=== PATIENT | male | born 1980 | race Caucasian/White ===

== ENCOUNTER 2022-02-22 14:55 | Inpatient (IN) | payer OTHER ==
[2022-02-22 17:49] VITALS: BMI 27.7
[2022-02-22] MEDS ORDERED: guaiFENesin 200 MG/10 ML 10 ML UNIT-DOSE CUPS PO PRN (18:35)
[2022-02-22] MEDS ORDERED: ACETAMINOPHEN 325 MG TABLET (FP) PO PRN ×2 (18:35)
[2022-02-22] MEDS ORDERED: ONDANSETRON *ODT* 4 MG TABLET SL PRN (18:35)
[2022-02-22] MEDS ORDERED: IBUPROFEN 600 MG TABLET (FP) PO PRN (18:35)
[2022-02-22] MEDS ORDERED: BENZOCAINE/MENTHOL (CHLORASEPTIC ) LOZENGE MM PRN (18:35)
[2022-02-22] MEDS ORDERED: POLYETHYLENE GLYCOL (HEALTHYLAX) 3350 17 GM PACKET PO PRN (18:35)
[2022-02-22] MEDS ORDERED: DICYCLOMINE HCL 10 MG CAPSULE PO PRN (18:35)
[2022-02-22] MEDS ORDERED: hydrOXYzine PAMOATE 25 MG CAPSULE (FP) PO PRN (18:35)
[2022-02-22] MEDS ORDERED: MAG HYDROX/AL HYDROX/SIMETH 30 ML UNIT-DOSE CUP PO PRN (18:35)
[2022-02-22] MEDS ORDERED: METHOCARBAMOL 500 MG TABLET PO PRN (18:35)
[2022-02-22] MEDS ORDERED: P-EPHED 60MG/TRIPROLIDI 2.5MG TABLET PO PRN (18:35)
[2022-02-22] MEDS ORDERED: LOPERAMIDE HCL 2 MG CAPSULE PO PRN (18:35)
[2022-02-22] MEDS ORDERED: BISMUTH SUBSALICYLATE 524 MG/30 ML PO PRN (18:35)
[2022-02-22] MEDS ORDERED: MAGNESIUM HYDROX 2400MG/30ML ORAL SUSPENSION 30 ML CUP PO PRN (18:35)
[2022-02-22] MEDS ORDERED: IBUPROFEN 400 MG TABLET (FP) PO PRN (18:35)
[2022-02-22] MEDS ORDERED: chlordiazePOXIDE HCL 25 MG CAPSULE PO ONE (18:50)
[2022-02-22] MEDS: THIAMINE HCL 100 MG TABLET (FP) PO SCH (21:21)
[2022-02-22] MEDS: MELATONIN 5 MG TABLETS PO SCH (21:21)
[2022-02-22] MEDS: levETIRAcetam 500 MG TABLET (FP) PO SCH (22:35)
[2022-02-22] MEDS: chlordiazePOXIDE HCL 25 MG CAPSULE PO SCH (23:12)
[2022-02-23] MEDS: chlordiazePOXIDE HCL 25 MG CAPSULE PO SCH ×4 (04:05→22:17)
[2022-02-23] MEDS: chlordiazePOXIDE HCL 25 MG CAPSULE PO PRN ×2 (07:43→14:53)
[2022-02-23 10:09] LABS: ALBUMIN 3.7 g/dl (3.4-5.0); BLOOD UREA NITROGEN 13.6 mg/dL (7-18)
[2022-02-23 10:11] LABS: CREATININE 0.9 mg/dL (0.55-1.3)
[2022-02-23 10:14] LABS: BILIRUBIN,TOTAL 0.4 mg/dL (0.2-1); TOT PROT 7.4 g/dl (6.4-8.2)
[2022-02-23 10:24] LABS: HEMATOCRIT 42.8 % (35.4-49); HEMOGLOBIN 14.5 GM/dL (11.7-16.9); MCH 32.5 pg (25.7-33.7); MCHC 33.9 g/dl (32.0-35.9); MEAN PLT VOLUME 7.5 fl (7.5-11.1); PLATELET COUNT 290 10^3/uL (134-434); RBC 4.46 M/mm3 (4.00-5.60); WHITE BLOOD COUNT 6.4 K/mm3 (4.0-10.0)
[2022-02-23] MEDS: PRENATAL VITAMINS W/ FOLIC ACID TABLET (FP) PO SCH (10:30)
[2022-02-23] MEDS: levETIRAcetam 500 MG TABLET (FP) PO SCH ×2 (10:30→22:17)
[2022-02-23] MEDS: NICOTINE 10 MG CARTRIDGE (INHALER) IH PRN ×3 (10:31→22:45)
[2022-02-23] MEDS: THIAMINE HCL 100 MG TABLET (FP) PO SCH (22:16)
[2022-02-23] MEDS: MELATONIN 5 MG TABLETS PO SCH (22:16)
[2022-02-24] MEDS: chlordiazePOXIDE HCL 25 MG CAPSULE PO SCH ×4 (05:56→22:06)
[2022-02-24] MEDS: NICOTINE 10 MG CARTRIDGE (INHALER) IH PRN ×2 (06:18→13:21)
[2022-02-24] MEDS: levETIRAcetam 500 MG TABLET (FP) PO SCH ×2 (10:25→22:06)
[2022-02-24] MEDS: PRENATAL VITAMINS W/ FOLIC ACID TABLET (FP) PO SCH (10:25)
[2022-02-24] MEDS: chlordiazePOXIDE HCL 25 MG CAPSULE PO PRN (12:35)
[2022-02-24] MEDS: NICOTINE 21 MG/24 HOURS TOPICAL PATCH TD SCH (15:08)
[2022-02-24] MEDS: THIAMINE HCL 100 MG TABLET (FP) PO SCH (22:06)
[2022-02-24] MEDS: MELATONIN 5 MG TABLETS PO SCH (22:06)
[2022-02-25] MEDS ORDERED: chlordiazePOXIDE HCL 10 MG CAPSULE PO PRN
[2022-02-25] MEDS: chlordiazePOXIDE HCL 10 MG CAPSULE PO SCH ×4 (05:47→22:20)
[2022-02-25] MEDS: NICOTINE 21 MG/24 HOURS TOPICAL PATCH TD SCH (10:12)
[2022-02-25] MEDS: levETIRAcetam 500 MG TABLET (FP) PO SCH ×2 (10:12→22:19)
[2022-02-25] MEDS: PRENATAL VITAMINS W/ FOLIC ACID TABLET (FP) PO SCH (10:12)
[2022-02-25] MEDS: MELATONIN 5 MG TABLETS PO SCH (22:19)
[2022-02-25] MEDS: THIAMINE HCL 100 MG TABLET (FP) PO SCH (22:19)
[2022-02-25] MEDS: QUEtiapine FUMARATE 50 MG TABLET PO SCH (22:19)
[2022-02-26] MEDS: chlordiazePOXIDE HCL 10 MG CAPSULE PO SCH ×2 (06:33→17:33)
[2022-02-26] MEDS: levETIRAcetam 500 MG TABLET (FP) PO SCH ×2 (10:05→22:23)
[2022-02-26] MEDS: PRENATAL VITAMINS W/ FOLIC ACID TABLET (FP) PO SCH (10:05)
[2022-02-26] MEDS: NICOTINE 21 MG/24 HOURS TOPICAL PATCH TD SCH (10:07)
[2022-02-26 17:35] VITALS: RESP 18
[2022-02-26] MEDS: THIAMINE HCL 100 MG TABLET (FP) PO SCH (22:23)
[2022-02-26] MEDS: MELATONIN 5 MG TABLETS PO SCH (22:23)
[2022-02-26] MEDS: QUEtiapine FUMARATE 50 MG TABLET PO SCH (22:23)
[2022-02-27] MEDS ORDERED: chlordiazePOXIDE HCL 10 MG CAPSULE PO ONE (05:00)
[2022-02-27 06:30] VITALS: BP 111/74; PULSE 80; TEMP 98.4
== END 2022-02-27 08:32 | disposition home or self-care (01) | DRG 897 ==
LOC: YASAS 14:55 → Y3N 19:56
PROVIDERS: ADMIT Allergy & Immunology; ATTEND Psychiatry & Neurology Psychiatry
PROC: HZ2ZZZZ Detoxification Services for Substance Abuse Treatment (ICD-10-PCS; principal; 2022-02-22)
DX: F10.230 Alcohol dependence with withdrawal, uncomplicated (principal); F12.20 Cannabis dependence, uncomplicated; F17.290 Nicotine dependence, other tobacco product, uncomplicated; F31.9 Bipolar disorder, unspecified; F10.282 Alcohol dependence with alcohol-induced sleep disorder; Z87.820 Personal history of traumatic brain injury; Z56.0 Unemployment, unspecified; Z59.00 Homelessness unspecified
CPT/HCPCS: 36415; 80053; 85027; 86780; 87811; 93005; 93010; C9803-CS; U0003; U0005

== ENCOUNTER 2022-03-31 09:07 | Inpatient (IN) | payer OTHER ==
[2022-03-31 10:11] VITALS: BMI 27.7
[2022-03-31] MEDS ORDERED: ONDANSETRON *ODT* 4 MG TABLET SL PRN (10:22)
[2022-03-31] MEDS ORDERED: DICYCLOMINE HCL 10 MG CAPSULE PO PRN (10:22)
[2022-03-31] MEDS ORDERED: BISMUTH SUBSALICYLATE 524 MG/30 ML PO PRN (10:22)
[2022-03-31] MEDS ORDERED: IBUPROFEN 400 MG TABLET (FP) PO PRN (10:22)
[2022-03-31] MEDS ORDERED: POLYETHYLENE GLYCOL (HEALTHYLAX) 3350 17 GM PACKET PO PRN (10:22)
[2022-03-31] MEDS ORDERED: MAGNESIUM HYDROX 2400MG/30ML ORAL SUSPENSION 30 ML CUP PO PRN (10:22)
[2022-03-31] MEDS ORDERED: MAG HYDROX/AL HYDROX/SIMETH 30 ML UNIT-DOSE CUP PO PRN (10:22)
[2022-03-31] MEDS ORDERED: ACETAMINOPHEN 325 MG TABLET (FP) PO PRN ×2 (10:22)
[2022-03-31] MEDS ORDERED: BENZOCAINE/MENTHOL (CHLORASEPTIC ) LOZENGE MM PRN (10:22)
[2022-03-31] MEDS ORDERED: LOPERAMIDE HCL 2 MG CAPSULE PO PRN (10:22)
[2022-03-31] MEDS ORDERED: NALOXONE HCL (KLOXXADO) 8 MG SPRAY NS PRN (10:22)
[2022-03-31] MEDS ORDERED: NICOTINE 10 MG CARTRIDGE (INHALER) IH PRN (10:22)
[2022-03-31] MEDS ORDERED: chlordiazePOXIDE HCL 25 MG CAPSULE ONE (11:01)
[2022-03-31] MEDS: chlordiazePOXIDE HCL 25 MG CAPSULE PO SCH ×3 (11:04→22:26)
[2022-03-31] MEDS: METHOCARBAMOL 500 MG TABLET PO PRN (11:17)
[2022-03-31] MEDS: hydrOXYzine PAMOATE 25 MG CAPSULE (FP) PO PRN (11:17)
[2022-03-31] MEDS: IBUPROFEN 600 MG TABLET (FP) PO PRN (11:17)
[2022-03-31] MEDS ORDERED: MELATONIN 5 MG TABLETS PO SCH (22:00)
[2022-03-31] MEDS: THIAMINE HCL 100 MG TABLET (FP) PO SCH (22:26)
[2022-04-01] MEDS: chlordiazePOXIDE HCL 25 MG CAPSULE PO SCH ×4 (05:58→22:04)
[2022-04-01] MEDS: PANTOPRAZOLE 40 MG TABLET PO SCH (10:54)
[2022-04-01] MEDS: PRENATAL VITAMINS W/ FOLIC ACID TABLET (FP) PO SCH (10:56)
[2022-04-01 10:59] LABS: MCH 32.1 pg (25.7-33.7); MCHC 33.2 g/dl (32.0-35.9); MEAN CELL VOLUME 96.6 fl (80-96); MEAN PLT VOLUME 7.5 fl (7.5-11.1); PLATELET COUNT 325 10^3/uL (134-434); RBC 4.66 M/mm3 (4.00-5.60); RDW 12.8 % (11.9-15.9); WHITE BLOOD COUNT 8.1 K/mm3 (4.0-10.0)
[2022-04-01 11:42] LABS: ALBUMIN 3.3 g/dl (3.4-5.0); BLOOD UREA NITROGEN 11.3 mg/dL (7-18); CALCIUM 8.9 mg/dL (8.5-10.1)
[2022-04-01 11:46] LABS: CREATININE 0.9 mg/dL (0.55-1.3)
[2022-04-01 11:47] LABS: BILIRUBIN,TOTAL 0.7 mg/dL (0.2-1); TOT PROT 6.8 g/dl (6.4-8.2)
[2022-04-01] MEDS ORDERED: QUEtiapine FUMARATE 50 MG TABLET PO PRN (13:07)
[2022-04-01] MEDS: chlordiazePOXIDE HCL 25 MG CAPSULE PO PRN (13:23)
[2022-04-01] MEDS: THIAMINE HCL 100 MG TABLET (FP) PO SCH (22:03)
[2022-04-01] MEDS: QUEtiapine FUMARATE 300 MG TABLET PO SCH (22:03)
[2022-04-02] MEDS: chlordiazePOXIDE HCL 25 MG CAPSULE PO SCH ×4 (06:07→22:10)
[2022-04-02] MEDS: PRENATAL VITAMINS W/ FOLIC ACID TABLET (FP) PO SCH (10:30)
[2022-04-02] MEDS: PANTOPRAZOLE 40 MG TABLET PO SCH (10:30)
[2022-04-02] MEDS: NICOTINE 7 MG/24 HOURS TOPICAL PATCH TD SCH (10:32)
[2022-04-02] MEDS: chlordiazePOXIDE HCL 25 MG CAPSULE PO PRN (13:18)
[2022-04-02] MEDS: hydrOXYzine PAMOATE 25 MG CAPSULE (FP) PO PRN (22:09)
[2022-04-02] MEDS: THIAMINE HCL 100 MG TABLET (FP) PO SCH (22:10)
[2022-04-02] MEDS: QUEtiapine FUMARATE 300 MG TABLET PO SCH (22:10)
[2022-04-03] MEDS ORDERED: chlordiazePOXIDE HCL 10 MG CAPSULE PO PRN
[2022-04-03] MEDS: chlordiazePOXIDE HCL 10 MG CAPSULE PO SCH ×4 (05:58→22:01)
[2022-04-03] MEDS: PRENATAL VITAMINS W/ FOLIC ACID TABLET (FP) PO SCH (10:19)
[2022-04-03] MEDS: NICOTINE 7 MG/24 HOURS TOPICAL PATCH TD SCH (10:20)
[2022-04-03] MEDS: PANTOPRAZOLE 40 MG TABLET PO SCH (10:21)
[2022-04-03] MEDS: hydrOXYzine PAMOATE 25 MG CAPSULE (FP) PO PRN (13:58)
[2022-04-03] MEDS: THIAMINE HCL 100 MG TABLET (FP) PO SCH (22:01)
[2022-04-03] MEDS: QUEtiapine FUMARATE 300 MG TABLET PO SCH (22:02)
[2022-04-04] MEDS: chlordiazePOXIDE HCL 10 MG CAPSULE PO SCH ×2 (05:48→17:26)
[2022-04-04] MEDS: PANTOPRAZOLE 40 MG TABLET PO SCH (10:27)
[2022-04-04] MEDS: NICOTINE 21 MG/24 HOURS TOPICAL PATCH TD SCH (10:27)
[2022-04-04] MEDS: METHOCARBAMOL 500 MG TABLET PO PRN ×2 (10:27→22:09)
[2022-04-04] MEDS: PRENATAL VITAMINS W/ FOLIC ACID TABLET (FP) PO SCH (10:27)
[2022-04-04] MEDS: THIAMINE HCL 100 MG TABLET (FP) PO SCH (22:07)
[2022-04-04] MEDS: QUEtiapine FUMARATE 300 MG TABLET PO SCH (22:07)
[2022-04-04] MEDS: hydrOXYzine PAMOATE 25 MG CAPSULE (FP) PO PRN (22:08)
[2022-04-05] MEDS ORDERED: chlordiazePOXIDE HCL 10 MG CAPSULE PO ONE (05:00)
[2022-04-05] MEDS: NICOTINE 21 MG/24 HOURS TOPICAL PATCH TD SCH (10:28)
[2022-04-05] MEDS: hydrOXYzine PAMOATE 25 MG CAPSULE (FP) PO PRN (10:29)
[2022-04-05] MEDS: PANTOPRAZOLE 40 MG TABLET PO SCH (10:29)
[2022-04-05] MEDS: PRENATAL VITAMINS W/ FOLIC ACID TABLET (FP) PO SCH (10:29)
[2022-04-05] MEDS: BACLOFEN 10 MG TABLET (FP) PO SCH ×2 (15:41→21:02)
[2022-04-05] MEDS: THIAMINE HCL 100 MG TABLET (FP) PO SCH (21:01)
[2022-04-05] MEDS: QUEtiapine FUMARATE 300 MG TABLET PO SCH (21:02)
[2022-04-06] MEDS: BACLOFEN 10 MG TABLET (FP) PO SCH ×3 (06:39→21:08)
[2022-04-06] MEDS: NICOTINE 21 MG/24 HOURS TOPICAL PATCH TD SCH (09:39)
[2022-04-06] MEDS: PANTOPRAZOLE 40 MG TABLET PO SCH (09:39)
[2022-04-06] MEDS: PRENATAL VITAMINS W/ FOLIC ACID TABLET (FP) PO SCH (09:39)
[2022-04-06] MEDS ORDERED: PNEUMOC 20-VAL CONJ-DIP CRM/PF 0.5 ML SYRINGE IM ONE (12:00)
[2022-04-06] MEDS: QUEtiapine FUMARATE 300 MG TABLET PO SCH (21:08)
[2022-04-06] MEDS: THIAMINE HCL 100 MG TABLET (FP) PO SCH (21:08)
[2022-04-07] MEDS: BACLOFEN 10 MG TABLET (FP) PO SCH ×3 (06:16→21:09)
[2022-04-07] MEDS: PRENATAL VITAMINS W/ FOLIC ACID TABLET (FP) PO SCH (09:39)
[2022-04-07] MEDS: PANTOPRAZOLE 40 MG TABLET PO SCH (09:40)
[2022-04-07] MEDS: NICOTINE 21 MG/24 HOURS TOPICAL PATCH TD SCH (09:40)
[2022-04-07] MEDS: IBUPROFEN 600 MG TABLET (FP) PO PRN (14:03)
[2022-04-07] MEDS: QUEtiapine FUMARATE 300 MG TABLET PO SCH (21:09)
[2022-04-07] MEDS: THIAMINE HCL 100 MG TABLET (FP) PO SCH (21:09)
[2022-04-08] MEDS: BACLOFEN 10 MG TABLET (FP) PO SCH ×3 (07:09→21:10)
[2022-04-08] MEDS: NICOTINE 21 MG/24 HOURS TOPICAL PATCH TD SCH (09:35)
[2022-04-08] MEDS: PRENATAL VITAMINS W/ FOLIC ACID TABLET (FP) PO SCH (09:35)
[2022-04-08] MEDS: PANTOPRAZOLE 40 MG TABLET PO SCH (09:36)
[2022-04-08] MEDS: QUEtiapine FUMARATE 300 MG TABLET PO SCH (21:10)
[2022-04-08] MEDS: THIAMINE HCL 100 MG TABLET (FP) PO SCH (21:10)
[2022-04-09] MEDS: BACLOFEN 10 MG TABLET (FP) PO SCH ×3 (06:21→21:04)
[2022-04-09] MEDS: PRENATAL VITAMINS W/ FOLIC ACID TABLET (FP) PO SCH (09:30)
[2022-04-09] MEDS: NICOTINE 21 MG/24 HOURS TOPICAL PATCH TD SCH (09:31)
[2022-04-09] MEDS: PANTOPRAZOLE 40 MG TABLET PO SCH (09:31)
[2022-04-09] MEDS: LACTULOSE 20 GM/30 ML UDC (FOR ORAL USE ONLY) PO SCH ×2 (14:57→21:04)
[2022-04-09] MEDS: QUEtiapine FUMARATE 300 MG TABLET PO SCH (21:04)
[2022-04-09] MEDS: THIAMINE HCL 100 MG TABLET (FP) PO SCH (21:04)
[2022-04-10] MEDS: BACLOFEN 10 MG TABLET (FP) PO SCH ×3 (06:41→21:17)
[2022-04-10] MEDS: LACTULOSE 20 GM/30 ML UDC (FOR ORAL USE ONLY) PO SCH ×3 (06:41→21:17)
[2022-04-10] MEDS: PRENATAL VITAMINS W/ FOLIC ACID TABLET (FP) PO SCH (09:43)
[2022-04-10] MEDS: NICOTINE 21 MG/24 HOURS TOPICAL PATCH TD SCH (09:43)
[2022-04-10] MEDS: PANTOPRAZOLE 40 MG TABLET PO SCH (09:43)
[2022-04-10] MEDS: QUEtiapine FUMARATE 300 MG TABLET PO SCH (21:17)
[2022-04-10] MEDS: THIAMINE HCL 100 MG TABLET (FP) PO SCH (21:17)
[2022-04-11] MEDS: LACTULOSE 20 GM/30 ML UDC (FOR ORAL USE ONLY) PO SCH ×3 (06:30→21:10)
[2022-04-11] MEDS: BACLOFEN 10 MG TABLET (FP) PO SCH ×3 (06:30→21:10)
[2022-04-11] MEDS: NICOTINE 21 MG/24 HOURS TOPICAL PATCH TD SCH (09:41)
[2022-04-11] MEDS: PANTOPRAZOLE 40 MG TABLET PO SCH (09:41)
[2022-04-11] MEDS: PRENATAL VITAMINS W/ FOLIC ACID TABLET (FP) PO SCH (09:41)
[2022-04-11] MEDS: THIAMINE HCL 100 MG TABLET (FP) PO SCH (21:10)
[2022-04-11] MEDS: QUEtiapine FUMARATE 300 MG TABLET PO SCH (21:10)
[2022-04-11] MEDS: hydrOXYzine PAMOATE 25 MG CAPSULE (FP) PO PRN (21:11)
[2022-04-12] MEDS: BACLOFEN 10 MG TABLET (FP) PO SCH ×3 (06:27→21:04)
[2022-04-12] MEDS: LACTULOSE 20 GM/30 ML UDC (FOR ORAL USE ONLY) PO SCH ×3 (06:27→21:04)
[2022-04-12] MEDS: NICOTINE 21 MG/24 HOURS TOPICAL PATCH TD SCH (09:42)
[2022-04-12] MEDS: PRENATAL VITAMINS W/ FOLIC ACID TABLET (FP) PO SCH (09:42)
[2022-04-12] MEDS: PANTOPRAZOLE 40 MG TABLET PO SCH (09:42)
[2022-04-12] MEDS ORDERED: MAGNESIUM CITRATE 300 ML BOTTLE PO ONE (10:35)
[2022-04-12] MEDS: QUEtiapine FUMARATE 300 MG TABLET PO SCH (21:04)
[2022-04-12] MEDS: THIAMINE HCL 100 MG TABLET (FP) PO SCH (21:04)
[2022-04-13] MEDS: BACLOFEN 10 MG TABLET (FP) PO SCH ×3 (06:23→21:13)
[2022-04-13] MEDS: LACTULOSE 20 GM/30 ML UDC (FOR ORAL USE ONLY) PO SCH ×3 (06:23→21:12)
[2022-04-13] MEDS: NICOTINE 21 MG/24 HOURS TOPICAL PATCH TD SCH (09:22)
[2022-04-13] MEDS: PRENATAL VITAMINS W/ FOLIC ACID TABLET (FP) PO SCH (09:22)
[2022-04-13] MEDS: PANTOPRAZOLE 40 MG TABLET PO SCH (09:22)
[2022-04-13] MEDS: THIAMINE HCL 100 MG TABLET (FP) PO SCH (21:12)
[2022-04-13] MEDS: QUEtiapine FUMARATE 300 MG TABLET PO SCH (21:12)
[2022-04-14] MEDS: BACLOFEN 10 MG TABLET (FP) PO SCH ×3 (06:38→21:34)
[2022-04-14] MEDS: LACTULOSE 20 GM/30 ML UDC (FOR ORAL USE ONLY) PO SCH ×3 (06:38→21:34)
[2022-04-14] MEDS: PRENATAL VITAMINS W/ FOLIC ACID TABLET (FP) PO SCH (09:25)
[2022-04-14] MEDS: NICOTINE 21 MG/24 HOURS TOPICAL PATCH TD SCH (09:26)
[2022-04-14] MEDS: PANTOPRAZOLE 40 MG TABLET PO SCH (09:26)
[2022-04-14] MEDS: THIAMINE HCL 100 MG TABLET (FP) PO SCH (21:34)
[2022-04-14] MEDS: QUEtiapine FUMARATE 300 MG TABLET PO SCH (21:34)
[2022-04-15] MEDS: LACTULOSE 20 GM/30 ML UDC (FOR ORAL USE ONLY) PO SCH ×3 (06:34→21:03)
[2022-04-15] MEDS: BACLOFEN 10 MG TABLET (FP) PO SCH ×3 (06:34→21:02)
[2022-04-15] MEDS: NICOTINE 21 MG/24 HOURS TOPICAL PATCH TD SCH (09:30)
[2022-04-15] MEDS: PRENATAL VITAMINS W/ FOLIC ACID TABLET (FP) PO SCH (09:30)
[2022-04-15] MEDS: PANTOPRAZOLE 40 MG TABLET PO SCH (09:30)
[2022-04-15] MEDS: QUEtiapine FUMARATE 300 MG TABLET PO SCH (21:03)
[2022-04-15] MEDS: THIAMINE HCL 100 MG TABLET (FP) PO SCH (21:03)
[2022-04-16] MEDS: BACLOFEN 10 MG TABLET (FP) PO SCH ×3 (06:43→21:14)
[2022-04-16] MEDS: LACTULOSE 20 GM/30 ML UDC (FOR ORAL USE ONLY) PO SCH ×3 (06:43→21:14)
[2022-04-16] MEDS: NICOTINE 21 MG/24 HOURS TOPICAL PATCH TD SCH (09:34)
[2022-04-16] MEDS: PANTOPRAZOLE 40 MG TABLET PO SCH (09:34)
[2022-04-16] MEDS: PRENATAL VITAMINS W/ FOLIC ACID TABLET (FP) PO SCH (09:34)
[2022-04-16] MEDS: CYANOCOBALAMIN (VITAMIN B-12) 1000 MCG/1 ML VIAL IM SCH (11:05)
[2022-04-16] MEDS: QUEtiapine FUMARATE 300 MG TABLET PO SCH (21:14)
[2022-04-16] MEDS: THIAMINE HCL 100 MG TABLET (FP) PO SCH (21:14)
[2022-04-17] MEDS: BACLOFEN 10 MG TABLET (FP) PO SCH ×3 (06:39→21:10)
[2022-04-17] MEDS: LACTULOSE 20 GM/30 ML UDC (FOR ORAL USE ONLY) PO SCH ×3 (06:39→21:10)
[2022-04-17] MEDS: PRENATAL VITAMINS W/ FOLIC ACID TABLET (FP) PO SCH (10:30)
[2022-04-17] MEDS: PANTOPRAZOLE 40 MG TABLET PO SCH (10:30)
[2022-04-17] MEDS: NICOTINE 21 MG/24 HOURS TOPICAL PATCH TD SCH (10:31)
[2022-04-17] MEDS: THIAMINE HCL 100 MG TABLET (FP) PO SCH (21:10)
[2022-04-17] MEDS: QUEtiapine FUMARATE 300 MG TABLET PO SCH (21:10)
[2022-04-18] MEDS: BACLOFEN 10 MG TABLET (FP) PO SCH ×3 (06:26→21:09)
[2022-04-18] MEDS: LACTULOSE 20 GM/30 ML UDC (FOR ORAL USE ONLY) PO SCH ×4 (06:26→21:09)
[2022-04-18] MEDS: NICOTINE 21 MG/24 HOURS TOPICAL PATCH TD SCH (09:34)
[2022-04-18] MEDS: PRENATAL VITAMINS W/ FOLIC ACID TABLET (FP) PO SCH (09:34)
[2022-04-18] MEDS: PANTOPRAZOLE 40 MG TABLET PO SCH (09:35)
[2022-04-18] MEDS: THIAMINE HCL 100 MG TABLET (FP) PO SCH (21:09)
[2022-04-18] MEDS: QUEtiapine FUMARATE 300 MG TABLET PO SCH (21:09)
[2022-04-19] MEDS: BACLOFEN 10 MG TABLET (FP) PO SCH ×3 (06:51→21:11)
[2022-04-19] MEDS: PRENATAL VITAMINS W/ FOLIC ACID TABLET (FP) PO SCH (09:43)
[2022-04-19] MEDS: PANTOPRAZOLE 40 MG TABLET PO SCH (09:44)
[2022-04-19] MEDS: NICOTINE 21 MG/24 HOURS TOPICAL PATCH TD SCH (09:44)
[2022-04-19] MEDS: LACTULOSE 20 GM/30 ML UDC (FOR ORAL USE ONLY) PO SCH ×4 (09:44→21:11)
[2022-04-19] MEDS: THIAMINE HCL 100 MG TABLET (FP) PO SCH (21:11)
[2022-04-19] MEDS: QUEtiapine FUMARATE 300 MG TABLET PO SCH (21:11)
[2022-04-20] MEDS: BACLOFEN 10 MG TABLET (FP) PO SCH ×3 (06:44→21:03)
[2022-04-20] MEDS: PRENATAL VITAMINS W/ FOLIC ACID TABLET (FP) PO SCH (09:10)
[2022-04-20] MEDS: NICOTINE 21 MG/24 HOURS TOPICAL PATCH TD SCH (09:10)
[2022-04-20] MEDS: PANTOPRAZOLE 40 MG TABLET PO SCH (09:10)
[2022-04-20] MEDS: LACTULOSE 20 GM/30 ML UDC (FOR ORAL USE ONLY) PO SCH ×4 (09:10→21:03)
[2022-04-20] MEDS: QUEtiapine FUMARATE 300 MG TABLET PO SCH (21:03)
[2022-04-20] MEDS: THIAMINE HCL 100 MG TABLET (FP) PO SCH (21:03)
[2022-04-21] MEDS: BACLOFEN 10 MG TABLET (FP) PO SCH ×3 (06:35→21:08)
[2022-04-21 06:50] VITALS: RESP 18
[2022-04-21] MEDS: NICOTINE 21 MG/24 HOURS TOPICAL PATCH TD SCH (09:05)
[2022-04-21] MEDS: PANTOPRAZOLE 40 MG TABLET PO SCH (09:06)
[2022-04-21] MEDS: LACTULOSE 20 GM/30 ML UDC (FOR ORAL USE ONLY) PO SCH ×4 (09:06→21:08)
[2022-04-21] MEDS: PRENATAL VITAMINS W/ FOLIC ACID TABLET (FP) PO SCH (09:07)
[2022-04-21] MEDS: QUEtiapine FUMARATE 300 MG TABLET PO SCH (21:08)
[2022-04-21] MEDS: THIAMINE HCL 100 MG TABLET (FP) PO SCH (21:08)
[2022-04-22] MEDS: BACLOFEN 10 MG TABLET (FP) PO SCH ×3 (06:43→21:27)
[2022-04-22] MEDS: NICOTINE 21 MG/24 HOURS TOPICAL PATCH TD SCH (09:04)
[2022-04-22] MEDS: LACTULOSE 20 GM/30 ML UDC (FOR ORAL USE ONLY) PO SCH ×4 (09:04→21:27)
[2022-04-22] MEDS: PANTOPRAZOLE 40 MG TABLET PO SCH (09:05)
[2022-04-22] MEDS: PRENATAL VITAMINS W/ FOLIC ACID TABLET (FP) PO SCH (09:05)
[2022-04-22] MEDS: QUEtiapine FUMARATE 300 MG TABLET PO SCH (21:27)
[2022-04-22] MEDS: hydrOXYzine PAMOATE 25 MG CAPSULE (FP) PO PRN (21:27)
[2022-04-22] MEDS: THIAMINE HCL 100 MG TABLET (FP) PO SCH (21:27)
[2022-04-23] MEDS: BACLOFEN 10 MG TABLET (FP) PO SCH ×3 (06:02→21:31)
[2022-04-23] MEDS: LACTULOSE 20 GM/30 ML UDC (FOR ORAL USE ONLY) PO SCH ×4 (09:55→21:31)
[2022-04-23] MEDS: NICOTINE 21 MG/24 HOURS TOPICAL PATCH TD SCH (09:55)
[2022-04-23] MEDS: PRENATAL VITAMINS W/ FOLIC ACID TABLET (FP) PO SCH (09:55)
[2022-04-23] MEDS: PANTOPRAZOLE 40 MG TABLET PO SCH (09:55)
[2022-04-23] MEDS: CYANOCOBALAMIN (VITAMIN B-12) 1000 MCG/1 ML VIAL IM SCH (10:05)
[2022-04-23] MEDS ORDERED: PALIPERIDONE PALMITATE 156 MG/ML IM ONE (14:00)
[2022-04-23] MEDS: THIAMINE HCL 100 MG TABLET (FP) PO SCH (21:31)
[2022-04-23] MEDS: QUEtiapine FUMARATE 300 MG TABLET PO SCH (21:31)
[2022-04-24] MEDS: BACLOFEN 10 MG TABLET (FP) PO SCH (06:37)
[2022-04-24 07:09] VITALS: BP 101/73; PULSE 75; TEMP 97.1
== END 2022-04-24 08:53 | disposition home or self-care (01) | DRG 895 ==
LOC: YASAS 09:07 → Y6N 10:32 → Y5N 04-05 14:03
PROVIDERS: ADMIT Allergy & Immunology; ATTEND Psychiatry & Neurology Pain Medicine
PROC: HZ2ZZZZ Detoxification Services for Substance Abuse Treatment (ICD-10-PCS; 2022-03-31)
PROC: HZ42ZZZ Group Counseling for Substance Abuse Treatment, Cognitive-Behavioral (ICD-10-PCS; principal; 2022-04-05)
DX: F10.20 Alcohol dependence, uncomplicated (principal); F15.20 Other stimulant dependence, uncomplicated; E72.20 Disorder of urea cycle metabolism, unspecified; F12.20 Cannabis dependence, uncomplicated; F17.210 Nicotine dependence, cigarettes, uncomplicated; F10.282 Alcohol dependence with alcohol-induced sleep disorder; F10.280 Alcohol dependence with alcohol-induced anxiety disorder; F31.9 Bipolar disorder, unspecified; F25.9 Schizoaffective disorder, unspecified; F41.9 Anxiety disorder, unspecified; K21.9 Gastro-esophageal reflux disease without esophagitis; Z20.822 Contact with and (suspected) exposure to COVID-19; Z62.810 Personal history of physical and sexual abuse in childhood; Z87.820 Personal history of traumatic brain injury; Z91.410 Personal history of adult physical and sexual abuse; Z56.0 Unemployment, unspecified; Z59.01 Sheltered homelessness
CPT/HCPCS: 36415; 80053; 82140; 85027; 86780; 90677; C9803-CS; J0475; J2426; U0003; U0005

== ENCOUNTER 2023-04-13 14:35 | Inpatient (IN) | payer OTHER ==
[2023-04-13 15:55] VITALS: BMI 24.6
[2023-04-13] MEDS ORDERED: P-EPHED 60MG/TRIPROLIDI 2.5MG TABLET PO PRN (16:09)
[2023-04-13] MEDS ORDERED: BENZOCAINE/MENTHOL (CHLORASEPTIC ) LOZENGE MM PRN (16:09)
[2023-04-13] MEDS ORDERED: IBUPROFEN 400 MG TABLET (FP) PO PRN (16:09)
[2023-04-13] MEDS ORDERED: LOPERAMIDE HCL 2 MG CAPSULE PO PRN (16:09)
[2023-04-13] MEDS ORDERED: BENZONATATE 200 MG CAPSULE PO PRN (16:09)
[2023-04-13] MEDS ORDERED: MAGNESIUM HYDROX 2400MG/30ML ORAL SUSPENSION 30 ML CUP PO PRN (16:09)
[2023-04-13] MEDS ORDERED: ACETAMINOPHEN 325 MG TABLET (FP) PO PRN (16:09)
[2023-04-13] MEDS ORDERED: BISMUTH SUBSALICYLATE 524 MG/30 ML PO PRN (16:09)
[2023-04-13] MEDS ORDERED: guaiFENesin 600 MG TABLET.ER (FP) PO PRN (16:09)
[2023-04-13] MEDS ORDERED: DICYCLOMINE HCL 10 MG CAPSULE PO PRN (16:09)
[2023-04-13] MEDS ORDERED: POLYETHYLENE GLYCOL (HEALTHYLAX) 3350 17 GM PACKET PO PRN (16:09)
[2023-04-13] MEDS ORDERED: MAG HYDROX/AL HYDROX/SIMETH 30 ML UNIT-DOSE CUP PO PRN (16:09)
[2023-04-13] MEDS: PANTOPRAZOLE 40 MG TABLET PO SCH ×2 (17:07→18:15)
[2023-04-13] MEDS: chlordiazePOXIDE HCL 25 MG CAPSULE PO SCH ×2 (18:08→18:14)
[2023-04-13] MEDS: hydrOXYzine PAMOATE 25 MG CAPSULE (FP) PO PRN (18:12)
[2023-04-13] MEDS: chlordiazePOXIDE HCL 25 MG CAPSULE PO PRN (20:18)
[2023-04-13] MEDS: THIAMINE HCL 100 MG TABLET (FP) PO SCH (22:31)
[2023-04-13] MEDS: MELATONIN 5 MG TABLETS PO SCH (22:31)
[2023-04-13] MEDS: levETIRAcetam 500 MG TABLET (FP) PO SCH (22:32)
[2023-04-14] MEDS: PRENATAL VITAMINS W/ FOLIC ACID TABLET (FP) PO SCH (10:28)
[2023-04-14] MEDS: NICOTINE 14 MG/24 HOURS TOPICAL PATCH TD SCH (10:29)
[2023-04-14] MEDS: METHOCARBAMOL 500 MG TABLET PO PRN (10:29)
[2023-04-14] MEDS: NICOTINE POLACRILEX 2 MG GUM BUC PRN (10:30)
[2023-04-14 10:51] LABS: HEMATOCRIT 40.9 % (35.4-49); HEMOGLOBIN 13.6 GM/dL (11.7-16.9); MCH 32.2 pg (25.7-33.7); MCHC 33.3 g/dl (32.0-35.9); MEAN CELL VOLUME 96.6 fl (80-96); MEAN PLT VOLUME 6.9 fl (7.5-11.1); PLATELET COUNT 290 10^3/uL (134-434); RBC 4.24 M/mm3 (4.00-5.60); RDW 13.5 % (11.9-15.9); WHITE BLOOD COUNT 8.2 K/mm3 (4.0-10.0)
[2023-04-14 10:57] LABS: CHLORIDE 106 mmol/L (98-107); POTASSIUM 4.3 mmol/L (3.5-5.1); SODIUM 139 mmol/L (136-145)
[2023-04-14 11:09] LABS: ALBUMIN 3.2 g/dl (3.4-5.0); ANION GAP 5 mmol/L (4-13); BLOOD UREA NITROGEN 10.9 mg/dL (7-18); CALCIUM 9.4 mg/dL (8.5-10.1); CO2 29 mmol/L (21-32); GLUCOSE,RANDOM 95 mg/dL (74-106)
[2023-04-14 11:12] LABS: CREATININE 0.7 mg/dL (0.55-1.3); SGOT/AST 13 U/L (15-37); SGPT/ALT 16 U/L (13-61)
[2023-04-14] MEDS: FLU VACCINE (FLULAVAL) PF 60 MCG/0.5 ML SYRINGE 2023-2024 IM ONE (11:13)
[2023-04-14 11:14] LABS: BILIRUBIN,TOTAL 0.5 mg/dL (0.2-1); TOT PROT 6.6 g/dl (6.4-8.2)
[2023-04-14 11:15] LABS: ALK PHOS 60 U/L (45-117)
[2023-04-14] MEDS: IBUPROFEN 600 MG TABLET (FP) PO PRN (11:47)
[2023-04-14] MEDS ORDERED: PNEUMOC 20-VAL CONJ-DIP CRM/PF 0.5 ML SYRINGE IM ONE (13:00)
[2023-04-14] MEDS ORDERED: ESCITALOPRAM OXALATE 10 MG TABLET ONE (13:18)
[2023-04-14] MEDS: GABAPENTIN 300 MG CAPSULE PO SCH (13:20)
[2023-04-14] MEDS: risperiDONE 1 MG TABLET PO SCH (13:20)
[2023-04-14] MEDS: BENZTROPINE MESYLATE 1 MG TABLET PO SCH (13:20)
[2023-04-14] MEDS: ESCITALOPRAM OXALATE 20 MG TABLET PO SCH (13:21)
[2023-04-14] MEDS: ONDANSETRON *ODT* 4 MG TABLET SL PRN (17:24)
[2023-04-14] MEDS ORDERED: QUEtiapine FUMARATE 200 MG TABLET PO SCH (22:00)
[2023-04-14] MEDS: QUEtiapine FUMARATE 200 MG TABLET PO SCH (22:17)
[2023-04-15] MEDS: chlordiazePOXIDE HCL 25 MG CAPSULE PO SCH (05:30)
[2023-04-15] MEDS ORDERED: ESCITALOPRAM OXALATE 10 MG TABLET ONE (09:19)
[2023-04-15] MEDS ORDERED: chlordiazePOXIDE HCL 25 MG CAPSULE PO ONE (14:00)
[2023-04-15] MEDS: NICOTINE 7 MG/24 HOURS TOPICAL PATCH TD ONE (14:10)
[2023-04-16] MEDS ORDERED: chlordiazePOXIDE HCL 10 MG CAPSULE PO PRN
[2023-04-16] MEDS: chlordiazePOXIDE HCL 10 MG CAPSULE PO SCH (05:45)
[2023-04-16] MEDS ORDERED: ESCITALOPRAM OXALATE 10 MG TABLET ONE (10:43)
[2023-04-16] MEDS: NICOTINE 21 MG/24 HOURS TOPICAL PATCH TD SCH (10:44)
[2023-04-17] MEDS: chlordiazePOXIDE HCL 10 MG CAPSULE PO SCH (06:00)
[2023-04-17] MEDS ORDERED: ESCITALOPRAM OXALATE 10 MG TABLET ONE (09:41)
[2023-04-18] MEDS: chlordiazePOXIDE HCL 10 MG CAPSULE PO ONE (05:30)
[2023-04-18] MEDS ORDERED: ESCITALOPRAM OXALATE 10 MG TABLET ONE (09:48)
[2023-04-18 10:06] VITALS: BP 100/59; PULSE 57; RESP 19; TEMP 97.3
== END 2023-04-18 10:40 | disposition home or self-care (01) | DRG 897 ==
LOC: YASAS 14:35 → Y6N 16:46
PROVIDERS: ADMIT Allergy & Immunology; ATTEND Allergy & Immunology
PROC: HZ2ZZZZ Detoxification Services for Substance Abuse Treatment (ICD-10-PCS; principal; 2023-04-13)
DX: F10.230 Alcohol dependence with withdrawal, uncomplicated (principal); F15.10 Other stimulant abuse, uncomplicated; F12.20 Cannabis dependence, uncomplicated; F17.210 Nicotine dependence, cigarettes, uncomplicated; F10.280 Alcohol dependence with alcohol-induced anxiety disorder; F10.282 Alcohol dependence with alcohol-induced sleep disorder; F10.24 Alcohol dependence with alcohol-induced mood disorder; F31.9 Bipolar disorder, unspecified; K21.9 Gastro-esophageal reflux disease without esophagitis; Z87.820 Personal history of traumatic brain injury; Z86.69 Personal history of other diseases of the nervous system and sense organs; Z62.810 Personal history of physical and sexual abuse in childhood; Z91.410 Personal history of adult physical and sexual abuse; Z63.8 Other specified problems related to primary support group
CPT/HCPCS: 36415; 80053; 80307; 85027; 86780; 87635; 90686; G0008; Q0162

== ENCOUNTER 2023-05-20 19:43 | Inpatient (IN) | payer OTHER ==
[2023-05-20 20:34] VITALS: BMI 27.7
[2023-05-20] MEDS ORDERED: LOPERAMIDE HCL 2 MG CAPSULE PO PRN (20:50)
[2023-05-20] MEDS ORDERED: ACETAMINOPHEN 325 MG TABLET (FP) PO PRN (20:50)
[2023-05-20] MEDS ORDERED: BENZONATATE 200 MG CAPSULE PO PRN (20:50)
[2023-05-20] MEDS ORDERED: POLYETHYLENE GLYCOL (HEALTHYLAX) 3350 17 GM PACKET PO PRN (20:50)
[2023-05-20] MEDS ORDERED: NALOXONE HCL 0.4 MG/ML VIAL IM PRN (20:50)
[2023-05-20] MEDS ORDERED: MAG HYDROX/AL HYDROX/SIMETH 30 ML UNIT-DOSE CUP PO PRN (20:50)
[2023-05-20] MEDS ORDERED: BENZOCAINE/MENTHOL (CHLORASEPTIC ) LOZENGE MM PRN (20:50)
[2023-05-20] MEDS ORDERED: NALOXONE HCL (KLOXXADO) 8 MG SPRAY NS PRN (20:50)
[2023-05-20] MEDS ORDERED: ONDANSETRON *ODT* 4 MG TABLET SL PRN (20:50)
[2023-05-20] MEDS ORDERED: guaiFENesin 600 MG TABLET.ER (FP) PO PRN (20:50)
[2023-05-20] MEDS ORDERED: MAGNESIUM HYDROX 2400MG/30ML ORAL SUSPENSION 30 ML CUP PO PRN (20:50)
[2023-05-20] MEDS ORDERED: DICYCLOMINE HCL 10 MG CAPSULE PO PRN (20:50)
[2023-05-20] MEDS ORDERED: IBUPROFEN 400 MG TABLET (FP) PO PRN (20:50)
[2023-05-20] MEDS ORDERED: chlordiazePOXIDE HCL 25 MG CAPSULE ONE (21:25)
[2023-05-20] MEDS: chlordiazePOXIDE HCL 25 MG CAPSULE PO ONE (21:27)
[2023-05-20] MEDS: chlordiazePOXIDE HCL 25 MG CAPSULE PO SCH (22:51)
[2023-05-20] MEDS: levETIRAcetam 500 MG TABLET (FP) PO SCH (22:51)
[2023-05-20] MEDS: MELATONIN 5 MG TABLETS PO SCH (22:52)
[2023-05-20] MEDS: THIAMINE HCL 100 MG TABLET (FP) PO SCH (22:53)
[2023-05-21] MEDS: METHOCARBAMOL 500 MG TABLET PO PRN (05:25)
[2023-05-21] MEDS: NICOTINE POLACRILEX 2 MG GUM BUC PRN (05:53)
[2023-05-21] MEDS: chlordiazePOXIDE HCL 25 MG CAPSULE PO PRN (07:09)
[2023-05-21] MEDS: PRENATAL VITAMINS W/ FOLIC ACID TABLET (FP) PO SCH (10:01)
[2023-05-21] MEDS: NICOTINE 14 MG/24 HOURS TOPICAL PATCH TD SCH (10:02)
[2023-05-21 10:43] LABS: HEMATOCRIT 39.9 % (35.4-49); HEMOGLOBIN 13.8 GM/dL (11.7-16.9); MCH 33.3 pg (25.7-33.7); MCHC 34.5 g/dl (32.0-35.9); MEAN CELL VOLUME 96.5 fl (80-96); MEAN PLT VOLUME 6.7 fl (7.5-11.1); PLATELET COUNT 312 10^3/uL (134-434); RBC 4.14 M/mm3 (4.00-5.60); RDW 14.4 % (11.9-15.9); WHITE BLOOD COUNT 9.3 K/mm3 (4.0-10.0)
[2023-05-21 11:16] LABS: POTASSIUM 3.7 mmol/L (3.5-5.1)
[2023-05-21 11:20] LABS: ALBUMIN 3.2 g/dl (3.4-5.0); BLOOD UREA NITROGEN 11.8 mg/dL (7-18)
[2023-05-21 11:23] LABS: CREATININE 0.7 mg/dL (0.55-1.3)
[2023-05-21 11:25] LABS: BILIRUBIN,TOTAL 0.2 mg/dL (0.2-1); TOT PROT 7.1 g/dl (6.4-8.2)
[2023-05-21] MEDS ORDERED: PNEUMOC 20-VAL CONJ-DIP CRM/PF 0.5 ML SYRINGE IM ONE (12:00)
[2023-05-21] MEDS: PANTOPRAZOLE 40 MG TABLET PO SCH (13:35)
[2023-05-21] MEDS: QUEtiapine FUMARATE 100 MG TABLET (FP) PO SCH (22:14)
[2023-05-22] MEDS: chlordiazePOXIDE HCL 25 MG CAPSULE PO SCH (05:32)
[2023-05-22] MEDS: BISMUTH SUBSALICYLATE 524 MG/30 ML PO PRN (17:19)
[2023-05-22] MEDS: hydrOXYzine PAMOATE 25 MG CAPSULE (FP) PO PRN (20:14)
[2023-05-23] MEDS ORDERED: chlordiazePOXIDE HCL 10 MG CAPSULE PO PRN
[2023-05-23] MEDS: chlordiazePOXIDE HCL 10 MG CAPSULE PO SCH (05:27)
[2023-05-23] MEDS: IBUPROFEN 600 MG TABLET (FP) PO PRN (17:10)
[2023-05-24] MEDS: chlordiazePOXIDE HCL 10 MG CAPSULE PO SCH (05:52)
[2023-05-25] MEDS: chlordiazePOXIDE HCL 10 MG CAPSULE PO ONE (05:54)
[2023-05-25 21:00] VITALS: PULSE 80
[2023-05-26 09:20] VITALS: BP 119/84; RESP 20; TEMP 97.5
== END 2023-05-26 11:25 | disposition other institution (70) | DRG 897 ==
LOC: YASAS 19:43 → Y6N 21:43
PROVIDERS: ADMIT Allergy & Immunology; ATTEND Surgery
PROC: HZ2ZZZZ Detoxification Services for Substance Abuse Treatment (ICD-10-PCS; principal; 2023-05-20)
DX: F10.230 Alcohol dependence with withdrawal, uncomplicated (principal); F17.210 Nicotine dependence, cigarettes, uncomplicated; F31.9 Bipolar disorder, unspecified; K21.9 Gastro-esophageal reflux disease without esophagitis; Z62.810 Personal history of physical and sexual abuse in childhood; Z91.410 Personal history of adult physical and sexual abuse; Z63.8 Other specified problems related to primary support group
CPT/HCPCS: 36415; 80053; 85027; 86780; 87635; 93005; 93010

== ENCOUNTER 2023-06-25 15:48 | Inpatient (IN) | payer OTHER ==
[2023-06-25 17:27] VITALS: BMI 25.3
[2023-06-25] MEDS ORDERED: chlordiazePOXIDE HCL 25 MG CAPSULE PO PRN (19:39)
[2023-06-25] MEDS ORDERED: MAGNESIUM HYDROX 2400MG/30ML ORAL SUSPENSION 30 ML CUP PO PRN (20:00)
[2023-06-25] MEDS ORDERED: BENZOCAINE/MENTHOL (CHLORASEPTIC ) LOZENGE MM PRN (20:00)
[2023-06-25] MEDS ORDERED: DICYCLOMINE HCL 10 MG CAPSULE PO PRN (20:00)
[2023-06-25] MEDS ORDERED: BENZONATATE 200 MG CAPSULE PO PRN (20:00)
[2023-06-25] MEDS ORDERED: IBUPROFEN 600 MG TABLET (FP) PO PRN (20:00)
[2023-06-25] MEDS ORDERED: MAG HYDROX/AL HYDROX/SIMETH 30 ML UNIT-DOSE CUP PO PRN (20:00)
[2023-06-25] MEDS ORDERED: BISMUTH SUBSALICYLATE 524 MG/30 ML PO PRN (20:00)
[2023-06-25] MEDS ORDERED: NALOXONE HCL 0.4 MG/ML VIAL IM PRN (20:00)
[2023-06-25] MEDS ORDERED: guaiFENesin 600 MG TABLET.ER (FP) PO PRN (20:00)
[2023-06-25] MEDS ORDERED: ACETAMINOPHEN 325 MG TABLET (FP) PO PRN (20:00)
[2023-06-25] MEDS ORDERED: IBUPROFEN 400 MG TABLET (FP) PO PRN (20:00)
[2023-06-25] MEDS ORDERED: NALOXONE HCL (KLOXXADO) 8 MG SPRAY NS PRN (20:00)
[2023-06-25] MEDS ORDERED: POLYETHYLENE GLYCOL (HEALTHYLAX) 3350 17 GM PACKET PO PRN (20:00)
[2023-06-25] MEDS ORDERED: LOPERAMIDE HCL 2 MG CAPSULE PO PRN (20:00)
[2023-06-25] MEDS ORDERED: ONDANSETRON *ODT* 4 MG TABLET SL PRN (20:00)
[2023-06-25] MEDS ORDERED: chlordiazePOXIDE HCL 25 MG CAPSULE ONE (20:17)
[2023-06-25] MEDS ORDERED: NICOTINE POLACRILEX 2 MG GUM BUC PRN (20:19)
[2023-06-25] MEDS: chlordiazePOXIDE HCL 25 MG CAPSULE PO ONE (20:21)
[2023-06-25] MEDS: levETIRAcetam 500 MG TABLET (FP) PO SCH (22:20)
[2023-06-25] MEDS: chlordiazePOXIDE HCL 25 MG CAPSULE PO SCH (22:21)
[2023-06-25] MEDS: THIAMINE HCL 100 MG TABLET (FP) PO SCH (22:21)
[2023-06-25] MEDS: propRANOLol HCL 10 MG TABLET PO ONE (22:21)
[2023-06-25] MEDS: MELATONIN 5 MG TABLETS PO SCH (22:22)
[2023-06-26] MEDS: PRENATAL VITAMINS W/ FOLIC ACID TABLET (FP) PO SCH (10:20)
[2023-06-26] MEDS: NICOTINE 21 MG/24 HOURS TOPICAL PATCH TD SCH (10:20)
[2023-06-26] MEDS: PANTOPRAZOLE 40 MG TABLET PO SCH (10:22)
[2023-06-26 11:59] LABS: HEMATOCRIT 46.2 % (35.4-49); MCH 33.5 pg (25.7-33.7); MCHC 34.5 g/dl (32.0-35.9); MEAN CELL VOLUME 96.9 fl (80-96); MEAN PLT VOLUME 6.9 fl (7.5-11.1); PLATELET COUNT 186 10^3/uL (134-434); RBC 4.77 M/mm3 (4.00-5.60); WHITE BLOOD COUNT 8.1 K/mm3 (4.0-10.0)
[2023-06-26] MEDS ORDERED: PNEUMOC 20-VAL CONJ-DIP CRM/PF 0.5 ML SYRINGE IM ONE (12:00)
[2023-06-26 12:05] LABS: POTASSIUM 3.3 mmol/L (3.5-5.1)
[2023-06-26 12:11] LABS: CALCIUM 9.1 mg/dL (8.5-10.1)
[2023-06-26 12:12] LABS: ALBUMIN 3.7 g/dl (3.4-5.0); BLOOD UREA NITROGEN 9.5 mg/dL (7-18)
[2023-06-26 12:15] LABS: CREATININE 0.6 mg/dL (0.55-1.3)
[2023-06-26 12:16] LABS: BILIRUBIN,TOTAL 0.7 mg/dL (0.2-1); TOT PROT 7.7 g/dl (6.4-8.2)
[2023-06-26] MEDS: METHOCARBAMOL 500 MG TABLET PO PRN (13:31)
[2023-06-26] MEDS: hydrOXYzine PAMOATE 25 MG CAPSULE (FP) PO PRN (13:31)
[2023-06-26] MEDS: POTASSIUM CHLORIDE ORAL LIQUID 20 MEQ/15 ML PO ONE ×3 (16:03→18:10)
[2023-06-26] MEDS: QUEtiapine FUMARATE 100 MG TABLET (FP) PO SCH (22:16)
[2023-06-26] MEDS: POTASSIUM CHLORIDE ORAL LIQUID 20 MEQ/15 ML PO SCH (22:18)
[2023-06-27] MEDS: chlordiazePOXIDE HCL 25 MG CAPSULE PO SCH (05:26)
[2023-06-27 09:21] VITALS: BP 120/84; PULSE 73; RESP 18; TEMP 97.1
[2023-06-27 12:08] LABS: POTASSIUM 3.3 mmol/L (3.5-5.1)
[2023-06-27 12:14] LABS: CALCIUM 8.9 mg/dL (8.5-10.1)
[2023-06-27 12:15] LABS: ALBUMIN 3.5 g/dl (3.4-5.0); BLOOD UREA NITROGEN 10.6 mg/dL (7-18)
[2023-06-27 12:19] LABS: CREATININE 0.7 mg/dL (0.55-1.3)
[2023-06-27 12:20] LABS: TOT PROT 7.1 g/dl (6.4-8.2)
[2023-06-28] MEDS ORDERED: chlordiazePOXIDE HCL 10 MG CAPSULE PO PRN
[2023-06-28] MEDS ORDERED: chlordiazePOXIDE HCL 10 MG CAPSULE PO SCH (05:00)
[2023-06-29] MEDS ORDERED: chlordiazePOXIDE HCL 10 MG CAPSULE PO SCH (05:00)
[2023-06-30] MEDS ORDERED: chlordiazePOXIDE HCL 10 MG CAPSULE PO ONE (05:00)
== END 2023-06-27 12:50 | disposition left against medical advice (07) | DRG 894 ==
LOC: YASAS 15:48 → Y6N 20:30
PROVIDERS: ADMIT Allergy & Immunology; ATTEND Surgery
PROC: HZ2ZZZZ Detoxification Services for Substance Abuse Treatment (ICD-10-PCS; principal; 2023-06-25)
DX: F10.230 Alcohol dependence with withdrawal, uncomplicated (principal); F19.282 Other psychoactive substance dependence with psychoactive substance-induced sleep disorder; F19.280 Other psychoactive substance dependence with psychoactive substance-induced anxiety disorder; F12.20 Cannabis dependence, uncomplicated; F17.210 Nicotine dependence, cigarettes, uncomplicated; F31.9 Bipolar disorder, unspecified; F19.24 Other psychoactive substance dependence with psychoactive substance-induced mood disorder; E87.6 Hypokalemia; Z62.810 Personal history of physical and sexual abuse in childhood; Z63.8 Other specified problems related to primary support group; Z91.410 Personal history of adult physical and sexual abuse; Z87.820 Personal history of traumatic brain injury
CPT/HCPCS: 36415; 80053; 80305; 82947; 85027; 86780

== ENCOUNTER 2023-08-14 10:22 | Inpatient (IN) | payer OTHER ==
[2023-08-14 10:40] VITALS: BMI 26.1
[2023-08-14] MEDS ORDERED: BENZONATATE 200 MG CAPSULE PO PRN (10:51)
[2023-08-14] MEDS ORDERED: DICYCLOMINE HCL 10 MG CAPSULE PO PRN (10:51)
[2023-08-14] MEDS ORDERED: IBUPROFEN 400 MG TABLET (FP) PO PRN (10:51)
[2023-08-14] MEDS ORDERED: POLYETHYLENE GLYCOL (HEALTHYLAX) 3350 17 GM PACKET PO PRN (10:51)
[2023-08-14] MEDS ORDERED: BISMUTH SUBSALICYLATE 524 MG/30 ML PO PRN (10:51)
[2023-08-14] MEDS ORDERED: NALOXONE HCL 0.4 MG/ML VIAL IM PRN (10:51)
[2023-08-14] MEDS ORDERED: LOPERAMIDE HCL 2 MG CAPSULE PO PRN (10:51)
[2023-08-14] MEDS ORDERED: NALOXONE HCL (KLOXXADO) 8 MG SPRAY NS PRN (10:51)
[2023-08-14] MEDS ORDERED: BENZOCAINE/MENTHOL (CHLORASEPTIC ) LOZENGE MM PRN (10:51)
[2023-08-14] MEDS ORDERED: MAGNESIUM HYDROX 2400MG/30ML ORAL SUSPENSION 30 ML CUP PO PRN (10:51)
[2023-08-14] MEDS ORDERED: guaiFENesin 600 MG TABLET.ER (FP) PO PRN (10:51)
[2023-08-14] MEDS ORDERED: MAG HYDROX/AL HYDROX/SIMETH 30 ML UNIT-DOSE CUP PO PRN (10:51)
[2023-08-14] MEDS ORDERED: ACETAMINOPHEN 325 MG TABLET (FP) PO PRN (10:51)
[2023-08-14] MEDS ORDERED: ONDANSETRON *ODT* 4 MG TABLET ONE (11:07)
[2023-08-14] MEDS: ONDANSETRON *ODT* 4 MG TABLET SL PRN (11:08)
[2023-08-14] MEDS ORDERED: PRENATAL VITAMINS W/ FOLIC ACID TABLET (FP) PO ONE (11:20)
[2023-08-14] MEDS ORDERED: chlordiazePOXIDE HCL 25 MG CAPSULE ONE (11:20)
[2023-08-14] MEDS: PRENATAL VITAMINS W/ FOLIC ACID TABLET (FP) PO SCH (11:23)
[2023-08-14] MEDS: chlordiazePOXIDE HCL 25 MG CAPSULE PO ONE (11:23)
[2023-08-14] MEDS ORDERED: IBUPROFEN 600 MG TABLET (FP) PO ONE (11:32)
[2023-08-14] MEDS: IBUPROFEN 600 MG TABLET (FP) PO PRN (11:34)
[2023-08-14] MEDS: hydrOXYzine PAMOATE 25 MG CAPSULE (FP) PO PRN (12:14)
[2023-08-14] MEDS: METHOCARBAMOL 500 MG TABLET PO PRN (12:14)
[2023-08-14] MEDS: chlordiazePOXIDE HCL 25 MG CAPSULE PO PRN (13:43)
[2023-08-14] MEDS: levETIRAcetam 500 MG TABLET (FP) PO SCH (15:21)
[2023-08-14] MEDS: levETIRAcetam 500 MG TABLET (FP) PO ONE (15:22)
[2023-08-14] MEDS: chlordiazePOXIDE HCL 25 MG CAPSULE PO SCH (17:35)
[2023-08-14] MEDS: MELATONIN 5 MG TABLETS PO SCH (22:46)
[2023-08-14] MEDS: THIAMINE 100 MG TABLET PO SCH (22:46)
[2023-08-14] MEDS: QUEtiapine FUMARATE 300 MG TABLET PO SCH (22:47)
[2023-08-15] MEDS: PANTOPRAZOLE 40 MG TABLET PO SCH (09:56)
[2023-08-15 12:22] LABS: MCH 33.1 pg (25.7-33.7); MCHC 33.3 g/dl (32.0-35.9); MEAN CELL VOLUME 99.6 fl (80-96); MEAN PLT VOLUME 7.4 fl (7.5-11.1); PLATELET COUNT 175 10^3/uL (134-434); RBC 4.82 M/mm3 (4.00-5.60); RDW 14.4 % (11.9-15.9)
[2023-08-15 12:52] LABS: POTASSIUM 3.6 mmol/L (3.5-5.1)
[2023-08-15 12:54] LABS: BLOOD UREA NITROGEN 10.4 mg/dL (7-18)
[2023-08-15 12:58] LABS: CREATININE 0.8 mg/dL (0.55-1.3)
[2023-08-15 13:00] LABS: TOT PROT 8.1 g/dl (6.4-8.2)
[2023-08-15] MEDS: NICOTINE 21 MG/24 HOURS TOPICAL PATCH TD ONE (15:48)
[2023-08-16] MEDS: chlordiazePOXIDE HCL 25 MG CAPSULE PO SCH (05:45)
[2023-08-16] MEDS: NICOTINE 14 MG/24 HOURS TOPICAL PATCH TD SCH (10:07)
[2023-08-17] MEDS: chlordiazePOXIDE HCL 10 MG CAPSULE PO SCH (05:49)
[2023-08-17] MEDS: chlordiazePOXIDE HCL 10 MG CAPSULE PO PRN (13:37)
[2023-08-18] MEDS: chlordiazePOXIDE HCL 10 MG CAPSULE PO SCH (05:51)
[2023-08-18] MEDS: amLODIPine BESYLATE 5 MG TABLET (FP) PO SCH (10:30)
[2023-08-18 14:39] VITALS: BP 123/85; PULSE 101; RESP 18; TEMP 97.7
[2023-08-19] MEDS ORDERED: chlordiazePOXIDE HCL 10 MG CAPSULE PO ONE (05:00)
== END 2023-08-18 14:08 | disposition home or self-care (01) | DRG 897 ==
LOC: YASAS 10:22 → Y6N 11:34
PROVIDERS: ADMIT Allergy & Immunology; ATTEND Surgery
PROC: HZ2ZZZZ Detoxification Services for Substance Abuse Treatment (ICD-10-PCS; principal; 2023-08-14)
DX: F10.230 Alcohol dependence with withdrawal, uncomplicated (principal); F10.282 Alcohol dependence with alcohol-induced sleep disorder; F12.20 Cannabis dependence, uncomplicated; F15.10 Other stimulant abuse, uncomplicated; F17.210 Nicotine dependence, cigarettes, uncomplicated; F25.9 Schizoaffective disorder, unspecified; I10 Essential (primary) hypertension; K21.9 Gastro-esophageal reflux disease without esophagitis; Z86.69 Personal history of other diseases of the nervous system and sense organs
CPT/HCPCS: 36415; 80053; 80305; 80307; 85027; 86780; 93005; 93010; Q0162

== ENCOUNTER 2023-09-02 15:04 | Inpatient (IN) | payer OTHER ==
[2023-09-02 17:19] VITALS: BMI 26.7
[2023-09-02] MEDS ORDERED: MAG HYDROX/AL HYDROX/SIMETH 30 ML UNIT-DOSE CUP PO PRN (19:46)
[2023-09-02] MEDS ORDERED: ACETAMINOPHEN 325 MG TABLET (FP) PO PRN (19:46)
[2023-09-02] MEDS ORDERED: IBUPROFEN 400 MG TABLET (FP) PO PRN (19:46)
[2023-09-02] MEDS ORDERED: POLYETHYLENE GLYCOL (HEALTHYLAX) 3350 17 GM PACKET PO PRN (19:46)
[2023-09-02] MEDS ORDERED: DICYCLOMINE HCL 10 MG CAPSULE PO PRN (19:46)
[2023-09-02] MEDS ORDERED: BISMUTH SUBSALICYLATE 524 MG/30 ML PO PRN (19:46)
[2023-09-02] MEDS ORDERED: BENZONATATE 200 MG CAPSULE PO PRN (19:46)
[2023-09-02] MEDS ORDERED: guaiFENesin 600 MG TABLET.ER (FP) PO PRN (19:46)
[2023-09-02] MEDS ORDERED: MAGNESIUM HYDROX 2400MG/30ML ORAL SUSPENSION 30 ML CUP PO PRN (19:46)
[2023-09-02] MEDS ORDERED: NICOTINE POLACRILEX 2 MG LOZENGE BC PRN (19:46)
[2023-09-02] MEDS ORDERED: BENZOCAINE/MENTHOL (CHLORASEPTIC ) LOZENGE MM PRN (19:46)
[2023-09-02] MEDS ORDERED: ONDANSETRON *ODT* 4 MG TABLET SL PRN (19:46)
[2023-09-02] MEDS ORDERED: METOPROLOL TARTRATE 25 MG TABLET (FP) ONE (19:48)
[2023-09-02] MEDS ORDERED: chlordiazePOXIDE HCL 25 MG CAPSULE ONE (19:48)
[2023-09-02] MEDS: chlordiazePOXIDE HCL 25 MG CAPSULE PO ONE (20:04)
[2023-09-02] MEDS: METOPROLOL TARTRATE 25 MG TABLET (FP) PO ONE (20:06)
[2023-09-02] MEDS: levETIRAcetam 500 MG TABLET (FP) PO SCH (22:12)
[2023-09-02] MEDS: THIAMINE 100 MG TABLET PO SCH (22:13)
[2023-09-02] MEDS: chlordiazePOXIDE HCL 25 MG CAPSULE PO SCH (22:13)
[2023-09-02] MEDS: MELATONIN 5 MG TABLETS PO SCH (22:13)
[2023-09-03] MEDS: NICOTINE POLACRILEX 2 MG GUM BUC PRN (05:50)
[2023-09-03] MEDS: NICOTINE 14 MG/24 HOURS TOPICAL PATCH TD SCH (10:39)
[2023-09-03] MEDS: PRENATAL VITAMINS W/ FOLIC ACID TABLET (FP) PO SCH (10:43)
[2023-09-03] MEDS: amLODIPine BESYLATE 5 MG TABLET (FP) PO SCH (10:45)
[2023-09-03] MEDS: FAMOTIDINE 20 MG TABLET PO SCH (10:46)
[2023-09-03] MEDS: LOPERAMIDE HCL 2 MG CAPSULE PO PRN (10:46)
[2023-09-03] MEDS: METHOCARBAMOL 500 MG TABLET PO PRN (10:46)
[2023-09-03] MEDS: hydrOXYzine PAMOATE 25 MG CAPSULE (FP) PO PRN (10:46)
[2023-09-03] MEDS: chlordiazePOXIDE HCL 25 MG CAPSULE PO PRN (14:07)
[2023-09-03] MEDS: QUEtiapine FUMARATE 200 MG TABLET PO SCH (22:51)
[2023-09-04] MEDS: chlordiazePOXIDE HCL 25 MG CAPSULE PO SCH (05:48)
[2023-09-04] MEDS: IBUPROFEN 600 MG TABLET (FP) PO PRN (10:27)
[2023-09-04] MEDS: NALTREXONE HCL 50 MG TABLET PO SCH (15:10)
[2023-09-05] MEDS ORDERED: chlordiazePOXIDE HCL 10 MG CAPSULE PO PRN
[2023-09-05] MEDS: chlordiazePOXIDE HCL 10 MG CAPSULE PO SCH (04:51)
[2023-09-06] MEDS: chlordiazePOXIDE HCL 10 MG CAPSULE PO SCH (05:18)
[2023-09-07] MEDS: chlordiazePOXIDE HCL 10 MG CAPSULE PO ONE (05:11)
[2023-09-07 06:42] VITALS: TEMP 98.6
[2023-09-07 09:15] VITALS: BP 124/87; PULSE 85; RESP 18
== END 2023-09-07 09:40 | disposition home or self-care (01) | DRG 897 ==
LOC: YASAS 15:04 → Y6N 19:56
PROVIDERS: ADMIT Allergy & Immunology; ATTEND Surgery
DX: F10.230 Alcohol dependence with withdrawal, uncomplicated (principal); F14.20 Cocaine dependence, uncomplicated; F12.20 Cannabis dependence, uncomplicated; F15.10 Other stimulant abuse, uncomplicated; F17.210 Nicotine dependence, cigarettes, uncomplicated; F25.9 Schizoaffective disorder, unspecified; I10 Essential (primary) hypertension; K21.9 Gastro-esophageal reflux disease without esophagitis; Z62.810 Personal history of physical and sexual abuse in childhood; Z91.410 Personal history of adult physical and sexual abuse
CPT/HCPCS: 36415; 80305; 80307